=== PATIENT | male | born 2000 | race Caucasian/White ===

== ENCOUNTER 2024-01-27 18:26 | Emergency (ER) | payer OTHER ==
[2024-01-27] MEDS: Lidocaine 1% 5 ML VIAL INJECT ONE (20:51)
[2024-01-27] MEDS: Bacitracin Oint 1 GM U/D Packet TOP ONE (21:31)
[2024-01-28] MEDS: Lidocaine 1% 10 ML MDV ONE (06:34)
== END 2024-01-27 21:34 | disposition home or self-care (01) ==
LOC: MW.ED 18:26
DX: S61.210A Laceration without foreign body of right index finger without damage to nail, initial encounter (principal); Z88.2 Allergy status to sulfonamides; W27.8XXA Contact with other nonpowered hand tool, initial encounter
CPT/HCPCS: 12001; 73130-26-RT; 73130-RT; 99283; J3490